=== PATIENT | female | born 1985 | race Caucasian/White ===

== ENCOUNTER 2021-06-27 10:32 | Emergency (ER) | payer MEDICAID ==
[~2021-06-27] VITALS: Ht 167.6 cm; Wt 47.7 kg
[2021-06-27 10:57] VITALS: BP 110/71
[2021-06-27] MEDS ORDERED: CLIN300C70 PO (12:46)
== END 2021-06-27 12:58 | disposition home or self-care (01) ==
LOC: ER 10:33
DX: K04.7 Periapical abscess without sinus (principal); Z79.2 Long term (current) use of antibiotics
CPT/HCPCS: 41800; 99284